=== PATIENT | male | born 1955 | race Caucasian/White ===

== ENCOUNTER 2019-10-29 14:36 | Emergency (ER) | payer OTHER, MEDICAID ==
[~2019-10-29] VITALS: Ht 180.3 cm; Wt 87.0 kg
[2019-10-29] MEDS ORDERED: SODIUM CHLORIDE 0.9% 1,000 ML IV ONE (15:13)
[2019-10-29] MEDS ORDERED: LEVETIRACETAM 500MG PREMIX 100 ML IV ONE (15:15)
[2019-10-29 16:32] LABS: CHLORIDE 92 mEq/L (98-107)
[2019-10-29 16:37] LABS: ETHANOL BLOOD < 10 mg/dL
[2019-10-29 17:06] LABS: CARBAMAZEPINE < 0.5 ug/mL (4-12); PHENOBARBITAL < 2.1 ug/mL (15.0-40.0); VALPROIC ACID < 3.0 ug/mL (50-100)
[2019-10-29 17:19] LABS: HEMATOCRIT. 23.6 % (42.0-52.0); HEMOGLOBIN. 8.1 g/dL (14.0-18.0); MEAN CORPUSCULAR HEMOGLOBIN 30.3 pg (28.0-32.0); MEAN CORPUSCULAR VOLUME 88.1 fL (80.0-94.0); MEAN PLATELET VOLUME 8.1 fl (7.4-10.4); RED BLOOD CELL COUNT 2.68 mill/uL (4.7-6.1); RED CELL DISTRIBUTION WIDTH 13.9 % (11.6-14.6)
[2019-10-29 17:28] LABS: PLATELET 10 x1000/uL (130-400)
[2019-10-29 18:31] LABS: NUCLEATED RED BLOOD CELLS 12 /100 WBC
[2019-10-29 18:33] LABS: PLATELET ESTIMATE MARKEDLY DECREASED
[2019-10-29 20:35] VITALS: BP 148/75
== END 2019-10-29 21:20 | disposition short-term general hospital (02) ==
LOC: ER 14:42
DX: G40.909 Epilepsy, unspecified, not intractable, without status epilepticus (principal); D72.819 Decreased white blood cell count, unspecified; D69.6 Thrombocytopenia, unspecified; G83.9 Paralytic syndrome, unspecified; R53.1 Weakness; E11.9 Type 2 diabetes mellitus without complications; Z99.3 Dependence on wheelchair; Z87.828 Personal history of other (healed) physical injury and trauma; Z85.71 Personal history of Hodgkin lymphoma
CPT/HCPCS: 36415; 70450; 71045; 80053; 80156; 80165; 80184; 80185; 80320; 84484; 85025; 93005; 96365; 99285; J1953; J7030; G0480